=== PATIENT | female | born 1980 | race Caucasian/White ===

== ENCOUNTER 2021-08-09 18:30 | Emergency (ER) | payer OTHER ==
[2021-08-09] MEDS ORDERED: Ondansetron 4 MG/2 ML SDV IVPUSH ONE (18:48)
[2021-08-09] MEDS ORDERED: Dextrose 5%-Lactated Ringers 1,000 ML IV SCH (19:00)
[2021-08-09 19:20] LABS: BLOOD UREA NITROGEN,BUN 8 mg/dL (7.0-18.0); CARBON DIOXIDE,CO2 20.9 mmol/L (21.0-32.0); CHLORIDE,CL 101 mmol/L (98-107); GLUCOSE RANDOM 105 mg/dL (74-106); LIPASE 69 U/L (73-393); POTASSIUM,K 3.5 mmol/L (3.5-5.1); SODIUM,NA 134 mmol/L (136-145)
[2021-08-09 19:36] LABS: CORONAVIRUS COVID-19 NAA POSITIVE (NEGATIVE); INFLUENZA A NAA NEGATIVE (NEGATIVE); INFLUENZA B NAA NEGATIVE (NEGATIVE)
== END 2021-08-09 21:21 | disposition home or self-care (01) ==
LOC: MW.ED 18:30
DX: U07.1 COVID-19 (principal); R50.9 Fever, unspecified; R11.2 Nausea with vomiting, unspecified; R51.9 Headache, unspecified; Z79.899 Other long term (current) drug therapy
CPT/HCPCS: 0240U; 36415; 80053; 81003; 83690; 85025; 96361; 96374; 99283; J2405; J7121

== ENCOUNTER 2022-03-19 17:39 | Inpatient (IN) | payer OTHER ==
[2022-03-19] MEDS ORDERED: Butorphanol 1 MG/ML SDV IVPUSH PRN (18:00)
[2022-03-19] MEDS ORDERED: Methylergonovine 0.2 MG/1 ML Amp IM PRN (18:00)
[2022-03-19] MEDS ORDERED: Misoprostol 200 MCG Tab PO PRN (18:00)
[2022-03-19] MEDS ORDERED: Lidocaine 1% 50 ML MDV INJECT PRN (18:00)
[2022-03-19] MEDS ORDERED: Sodium Chloride 0.9% 10 ML Syringe FLUSH PRN (18:00)
[2022-03-19] MEDS ORDERED: Misoprostol 25 MCG (1/4 of 100 MCG) Tab VAG PRN ×2 (18:00)
[2022-03-19] MEDS ORDERED: Sodium Chloride 0.9% 20 ML SDV IV PRN (18:00)
[2022-03-19] MEDS ORDERED: Terbutaline 1 MG/ML SDV SUBCUT PRN (18:00)
[2022-03-19] MEDS ORDERED: Carboprost Tromethamine 250 MCG/1 ML Amp IM PRN (18:00)
[2022-03-19] MEDS ORDERED: Sodium Chloride 0.9% 2.5 ML Syringe FLUSH PRN (18:00)
[2022-03-19] MEDS ORDERED: Tranexamic Acid 1,000 MG in Sodium Chloride 0.9% 100 ML IV PRN (18:00)
[2022-03-19] MEDS ORDERED: Water For Irrigation,Sterile 1,000 ML Container IRR PRN (18:00)
[2022-03-19] MEDS ORDERED: Oxytocin/0.9 % Sodium Chloride 30 UNIT/500 ML BAG IV SCH ×2 (18:00)
[2022-03-19] MEDS: Lactated Ringers 1,000 ML IV SCH (19:27)
[2022-03-19] MEDS ORDERED: Dinoprostone 10 MG Insert VAG ONE (20:16)
[2022-03-20] MEDS: Lactated Ringers 1,000 ML IV SCH ×4 (02:09→16:24)
[2022-03-20] MEDS ORDERED: Ondansetron 4 MG/2 ML SDV IVPUSH PRN ×2 (09:37→21:21)
[2022-03-20] MEDS ORDERED: Ropivacaine/PF 400 MG/200 ML PCA ONE (13:55)
[2022-03-20] MEDS ORDERED: Dexmedetomidine 200 MCG/2 ML SDV ONE ×2 (14:10→20:12)
[2022-03-20] MEDS ORDERED: Phenylephrine HCl In 0.9% NaCl 1 MG/10 ML Vial IVPUSH PRN (14:14)
[2022-03-20] MEDS ORDERED: ePHEDrine 50 MG/ML SDV IVPUSH PRN (14:14)
[2022-03-20] MEDS ORDERED: Ropivacaine HCl/PF 400 MG in Premix Bag 1 BAG EPIDUR SCH (14:15)
[2022-03-20] MEDS ORDERED: ePHEDrine 50 MG/ML SDV IM ONE (16:15)
[2022-03-20] MEDS ORDERED: Azithromycin 500 MG in Sodium Chloride 0.9% 250 ML IV SCH (20:00)
[2022-03-20] MEDS ORDERED: ceFAZolin 2 GM in Premix Bag 1 BAG IV SCH (20:00)
[2022-03-20] MEDS ORDERED: Water For Injection, Sterile 20 ML ONE (20:12)
[2022-03-20] MEDS ORDERED: ceFAZolin 1 GM Vial ONE (20:12)
[2022-03-20] MEDS ORDERED: Ondansetron 4 MG/2 ML SDV ONE (20:12)
[2022-03-20] MEDS ORDERED: Oxytocin 10 Units/1 ML SDV ONE (20:12)
[2022-03-20] MEDS ORDERED: Azithromycin 500 MG Vial ONE (20:12)
[2022-03-20] MEDS ORDERED: ePHEDrine 50 MG/ML SDV ONE (20:16)
[2022-03-20] MEDS ORDERED: Dexamethasone 4 MG/ML 5 ML MDV ONE (20:18)
[2022-03-20] MEDS ORDERED: Ropivacaine 0.5% 5 MG/ML 30 ML SDV ONE (20:18)
[2022-03-20] MEDS ORDERED: Water For Injection, Sterile 60 ML ONE (20:20)
[2022-03-20] MEDS ORDERED: Morphine PF 10 MG/10 ML SDV ONE (20:44)
[2022-03-20] MEDS ORDERED: Ibuprofen 800 MG Tab PO PRN (21:21)
[2022-03-20] MEDS ORDERED: Bisacodyl 10 MG Supp RECTAL PRN (21:21)
[2022-03-20] MEDS ORDERED: Lanolin 100% Cream 7 GM Tube TOP PRN (21:21)
[2022-03-20] MEDS ORDERED: Tranexamic Acid 1,000 MG in Sodium Chloride 0.9% 100 ML IV PRN (21:21)
[2022-03-20] MEDS ORDERED: Acetaminophen/oxyCODONE 325-5 MG Tab PO PRN ×2 (21:21)
[2022-03-20] MEDS ORDERED: Misoprostol 200 MCG Tab RECTAL PRN (21:21)
[2022-03-20] MEDS ORDERED: Oxytocin 10 Units/1 ML SDV IM PRN (21:21)
[2022-03-20] MEDS ORDERED: Methylergonovine 0.2 MG/1 ML Amp IM PRN (21:21)
[2022-03-20] MEDS ORDERED: diphenhydrAMINE 50 MG/ML SDV IVPUSH PRN (21:21)
[2022-03-20] MEDS ORDERED: Lactated Ringers 1,000 ML IV SCH (21:30)
[2022-03-20] MEDS ORDERED: Oxytocin/0.9 % Sodium Chloride 30 UNIT/500 ML BAG IV SCH (21:30)
[2022-03-21] MEDS: Ketorolac 30 MG/ML SDV IVPUSH SCH ×4 (01:15→20:18)
[2022-03-21] MEDS: Docusate Sodium 100 MG Cap PO SCH ×2 (08:17→20:20)
[2022-03-22] MEDS: Docusate Sodium 100 MG Cap PO SCH (08:26)
== END 2022-03-22 12:50 | disposition home or self-care (01) | DRG 788 ==
LOC: MW.OB 17:39 → MW.OBCHECK 17:39 → MW.OB 17:40 → MW.OBCHECK 17:40 → OBSVTOIN 03-20 20:46 → MW.OB 03-21 01:02
PROVIDERS: ADMIT Obstetrics & Gynecology; ATTEND Obstetrics & Gynecology
PROC: 10D00Z1 Extraction of Products of Conception, Low, Open Approach (ICD-10-PCS; principal; 2022-03-20)
PROC: 10D17Z9 Manual Extraction of Products of Conception, Retained, Via Natural or Artificial Opening (ICD-10-PCS; 2022-03-20)
PROC: 10907ZC Drainage of Amniotic Fluid, Therapeutic from Products of Conception, Via Natural or Artificial Opening (ICD-10-PCS; 2022-03-20)
PROC: 3E0P7VZ Introduction of Hormone into Female Reproductive, Via Natural or Artificial Opening (ICD-10-PCS; 2022-03-20)
PROC: 3E033VJ Introduction of Other Hormone into Peripheral Vein, Percutaneous Approach (ICD-10-PCS; 2022-03-20)
PROC: 10H07YZ Insertion of Other Device into Products of Conception, Via Natural or Artificial Opening (ICD-10-PCS; 2022-03-20)
DX: O76 Abnormality in fetal heart rate and rhythm complicating labor and delivery (principal); O62.2 Other uterine inertia; Z3A.39 39 weeks gestation of pregnancy; Z37.0 Single live birth
CPT/HCPCS: 01967; 01968; 36415; 51702; 64488; 82803; 85014; 85018; 85027; 85460; 86592; 86850; 86900; 86901; A9270-GY; J0456; J0595; J0690; J1100; J1885; J2274; J2405; J2590; J2790; J2795; J7120; U0002